=== PATIENT | female | born 1975 | race Caucasian/White ===

== ENCOUNTER 2016-11-03 21:42 | Emergency (ER) | payer OTHER ==
[~2016-11-03] VITALS: Ht 167.6 cm; Wt 86.2 kg
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
[2016-11-03] MEDS ORDERED: CYCLOBENZAPRINE5 M2 PO (23:08)
[2016-11-03 23:20] VITALS: BP 130/80
== END 2016-11-03 23:20 ==
LOC: ERH 21:42
DX: S16.1XXA Strain of muscle, fascia and tendon at neck level, initial encounter (principal); S39.92XA Unspecified injury of lower back, initial encounter; V49.40XA Driver injured in collision with unspecified motor vehicles in traffic accident, initial encounter